=== PATIENT | male | born 1965 | race African-American/Black ===

== ENCOUNTER 2018-03-10 18:23 | Emergency (ER) | payer OTHER ==
[2018-03-10] MEDS ORDERED: MAGNE/ALUM HYDROXD 30 ML UCUP ONE (18:42)
[2018-03-10] MEDS ORDERED: ONDANSETRON 4 MG/2 ML VIAL ONE (18:43)
[2018-03-10] MEDS ORDERED: MORPHINE 4 MG/ML SYR ONE (18:43)
[2018-03-10] MEDS ORDERED: LIDOCAINE VISCOUS 2% SOLN 15 ML UDC ONE (18:43)
[2018-03-10 18:47] LABS: MCH 28.7 pg (27.0-35.0)
[2018-03-10 18:52] LABS: Absolute Lymphocytes (CBC) 2.2 K/uL (0.7-4.9); Absolute Monocytes 0.7 K/uL (0.1-1.3); Absolute Neutrophil 4.1 K/uL (1.8-8.0); Basophils % 0.6 % (0-1.3); Eosinophils % 3.8 % (0-4.4); Hematocrit 42.9 % (39.6-49.0); Lymphocytes % 29.9 % (15.3-44.8); MCV 84.5 fL (80-100); MPV 10.1 fL (7.6-11.3); Monocytes % 9.7 % (3.3-12.3); RBC Red Blood Cell Count 5.07 M/uL (4.33-5.43)
[2018-03-10] MEDS ORDERED: MEPERIDINE HCL 50 MG/ML AMP ONE (19:02)
[2018-03-10 19:21] LABS: Albumin 4.1 g/dL (3.4-5.0); Bilirubin Direct 0.2 mg/dL (0-0.2); Potassium 3.6 mmol/L (3.5-5.1); Protein, Total 7.9 g/dL (6.4-8.2)
[2018-03-10] MEDS ORDERED: NA CHLORIDE 0.9% 1,000 ML ONE (19:43)
[2018-03-10 20:19] LABS: Urine Blood NEGATIVE (NEG); Urine Glucose NEGATIVE (NEG); Urine Protein NEGATIVE (NEG); Urine Specific Gravity 1.015 (1.005-1.030)
[2018-03-10 20:35] LABS: Urine RBC <5 /HPF (NONE SEEN)
[2018-03-10 20:36] LABS: Urine Bacteria NONE SEEN /HPF (NONE SEEN); Urine Culture Reflex Order NOT NEEDED
--- NOTE | 2018-03-10 20:41 | RAD REPORT ---
EXAM DESCRIPTION: CT - Abdomen Pelvis W Contrast - 03/10/2018 8:05 pm CLINICAL HISTORY: Abdominal pain/epigastric pain for 1 hour COMPARISON: none. TECHNIQUE: Computed axial tomography of the abdomen pelvis was obtained. 100 cc Isovue-300 was admin istered intravenously. Oral contrast was not requested which limits evaluation of bowel. All CT scans are performed using dose optimization technique as appropriate and may include automated exposure control or mA/KV adjustment according to patient size. FINDINGS: Mild fatty infiltration liver is present Spleen, pancreas, adrenal and right kidney appear unremarkable. A 7 millimeter left renal cyst is see n. There is no evidence of diverticulitis. An abnormal appendix is not seen. IMPRESSION: No acute abnormality is displayed.
--- NOTE | 2018-03-10 21:04 | EDPHYS ---
Physician Documentation [facility] Name: Angely Jang Age: 52 yrs Sex: Male : 1965 Arrival Date: 03/10/2018 Time: 18:26 Bed 7 Private MD: ED Physician Benji Valle HPI: 03/10 18:38 This 52 yrs old Black Male presents to ER via Ambulatory with complaints of Abdominal rn Pain. 18:39 The patient presents with abdominal pain in the epigastric area. Onset: The rn symptoms/episode began/occurred 1 hour(s) ago. The symptoms do not radiate. Associated signs and symptoms: Pertinent positives: diaphoresis. The symptoms are described as sharp. Modifying factors: The symptoms are alleviated by nothing, the symptoms are aggravated by touching the area. Severity of pain: At its worst the pain was moderate in the emergency department the pain has improved. The patient has not experienced similar symptoms in the past. Reports sudden onset epigastric abd pain 1 hour prior to arrival, slowly improving, became diaphoretic, no radiation, no vomiting/diarrhea. + burping. Denies chest pain.. Historical: - Allergies: 18:28 No Known Allergies; aa5 - PMHx: 18:28 Hypertension; aa5 - PSHx: 18:28 Thyroidectomy (Thyroid cancer); Hernia repair; aa5 - Immunization history:: Adult Immunizations up to date. - Social history:: Smoking status: Patient/guardian denies using tobacco. - Ebola Screening: : Patient denies travel to an Ebola-affected area in the 21 days before illness onset. - Family history:: not pertinent. - Hospitalizations: : No recent hospitalization is reported. ROS: 18:39 Constitutional: Negative for fever, chills, and weight loss, Eyes: Negative for injury, rn pain, redness, and discharge, Neck: Negative for injury, pain, and swelling, Cardiovascular: Negative for chest pain, palpitations, and edema, Respiratory: Negative for shortness of breath, cough, wheezing, and pleuritic chest pain, Abdomen/GI: Negative for nausea, vomiting, diarrhea, and constipation, MS/Extremity: Negative for injury and deformity, Skin: Negative for injury, rash, and discoloration, Neuro: Negative for headache, weakness, numbness, tingling, and seizure. Exam: 18:39 Constitutional: This is a well developed, well nourished patient who is awake, alert, rn appears uncomfortable Head/Face: Normocephalic, atraumatic. Eyes: Pupils equal round and reactive to light, extra-ocular motions intact. Lids and lashes normal. Conjunctiva and sclera are non-icteric and not injected. Cornea within normal limits. Periorbital areas with no swelling, redness, or edema. Chest/axilla: Normal chest wall appearance and motion. Nontender with no deformity. No lesions are appreciated. Cardiovascular: Regular rate and rhythm with a normal S1 and S2. No gallops, murmurs, or rubs. Normal PMI, no JVD. No pulse deficits. Respiratory: Lungs have equal breath sounds bilaterally, clear to auscultation and percussion. No rales, rhonchi or wheezes noted. No increased work of breathing, no retractions or nasal flaring. Abdomen/GI: soft, + mild epigastric tenderness, no rebound, neg joyner MS/ Extremity: Pulses equal, no cyanosis. Neurovascular intact. Full, normal range of motion. Equal circumference. Neuro: Awake and alert, GCS 15, oriented to person, place, time, and situation. Motor strength 5/5 in all extremities. Sensory grossly intact. Vital Signs: 16:28 BP 161 / 95; Pulse 84; Resp 20 S; Temp 98.0(TE); Pulse Ox 98% on R/A; Weight 131.54 kg aa5 (R); Height 6 ft. 0 in. (182.88 cm) (R); Pain 8/10; 18:52 BP 158 / 95; Pulse 79; Resp 19; Pulse Ox 99% on R/A; tw2 19:00 BP 152 / 84; Pulse 69; Resp 17; Pulse Ox 97% on R/A; Pain 9/10; ea 20:00 BP 159 / 68; Pulse 70; Resp 18; Pulse Ox 97% ; ea 21:00 BP 126 / 93; Pulse 60; Resp 18; Temp 97.8; Pulse Ox 99% ; Pain 2/10; ea 16:28 Body Mass Index 39.33 (131.54 kg, 182.88 cm) aa5 MDM: 18:29 Patient medically screened. rn 21:03 Data reviewed: vital signs, nurses notes, lab test result(s), EKG, radiologic studies, pkl CT scan, plain films, ultrasound. 21:04 Patient medically screened. pkl 03/10 18:37 Order name: Amylase, Serum; Complete Time: 19:40 tw2 03/10 18:37 Order name: Basic Metabolic Panel; Complete Time: 19:40 tw2 03/10 18:37 Order name: CBC with Diff; Complete Time: 19:17 tw2 03/10 18:37 Order name: Creatinine for Radiology; Complete Time: 19:17 tw2 03/10 18:37 Order name: Hepatic Function; Complete Time: 19:40 tw2 03/10 18:37 Order name: Lipase; Complete Time: 19:40 tw2 03/10 18:37 Order name: Urine Microscopic Only; Complete Time: 21:00 tw2 03/10 18:38 Order name: US Abdomen Limited rn 03/10 18:38 Order name: CT Abd/Pelvis - W/Contrast; Complete Time: 21:00 rn 03/10 18:39 Order name: Troponin (emerg Dept Use Only); Complete Time: 21:00 rn 03/10 19:59 Order name: Urine Dipstick--Ancillary (enter results); Complete Time: 20:23 2 03/10 18:37 Order name: IV Saline Lock; Complete Time: 18:42 tw2 03/10 18:37 Order name: Labs collected and sent; Complete Time: 18:42 tw2 03/10 18:37 Order name: Urine Dipstick-Ancillary (obtain specimen); Complete Time: 20:55 tw2 03/10 18:37 Order name: EKG - Nurse/Tech; Complete Time: 18:42 tw2 03/10 18:42 Order name: EKG; Complete Time: 18:43 tw2 Administered Medications: 18:42 Drug: GI Cocktail without - (Maalox Suspension 30 ml, Lidocaine Liquid 2 % 15 tw2 ml) Route: PO; 18:51 Follow up: Response: No adverse reaction; No change in condition tw2 18:48 Drug: Zofran 4 mg Route: IVP; Site: right antecubital; tw2 18:57 Follow up: Response: No adverse reaction tw2 18:51 Drug: morphine 4 mg Route: IVP; Site: right antecubital; tw2 18:57 Follow up: Response: No adverse reaction; Pain is unchanged, physician notified tw2 19:00 Drug: Demerol 50 mg Route: IVP; Site: right antecubital; tw2 20:56 Follow up: Response: No adverse reaction; Pain is decreased ea 19:48 Drug: NS 0.9% 1000 ml Route: IV; Rate: 125 ml/hr; Site: right antecubital; ea 21:15 Follow up: Response: No adverse reaction; IV Status: Completed infusion ea 21:07 Drug: ProTONIX 40 mg Route: PO; ea 21:16 Follow up: Response: No adverse reaction; Medication administered at discharge. ea Disposition: 03/10/18 21:04 Discharged to Home. Impression: Epigastric pain. GERD. - Condition is Stable. - Prescriptions for Protonix 40 mg Oral Tablet, Delayed Release (E.C.) - take 1 tablet by ORAL route once daily; 15 tablet. - Medication Reconciliation Form, Thank You Letter, Antibiotic Education, Prescription Opioid Use form. - Follow up: Private Physician; When: 2 - 3 days; Reason: Re-evaluation by your physician. - Problem is new. - Symptoms have improved. Signatures: Dispatcher [employer] EDBenji Mills MD MD pkl Abundio Ansari MD MD rn Kristy Valladares, RN RN aa5 Dai Davenport RN RN tw2 Lul Najera RN RN ae1 Nena Coulter RN RN Corrections: (The following items were deleted from the chart) 21:18 21:04 03/10/2018 21:04 Discharged to Home. Impression: Epigastric pain. GERD. Condition ea is Stable. Forms are Medication Reconciliation Form, Thank You Letter, Antibiotic Education, Prescription Opioid Use. Follow up: Private Physician; When: 2 - 3 days; Reason: Re-evaluation by your physician. Problem is new. Symptoms have improved. pkl
--- NOTE | 2018-03-10 21:04 | ER ---
Nurse's Notes [facility] Name: Angely Jang Age: 52 yrs Sex: Male : 1965 Arrival Date: 03/10/2018 Time: 18:26 Bed 7 Private MD: Diagnosis: Epigastric pain. GERD Presentation: 03/10 18:27 Presenting complaint: Patient states: sudden onset of epigastric pain x 1 hr ago. Pt aa5 denies N/V/D. Pt states "I got sweaty". Pt appears uncomfortable and restless in triage. 18:27 Transition of care: patient was not received from another setting of care. Onset of aa5 symptoms was March 10, 2018. Risk Assessment: Do you want to hurt yourself or someone else? Patient reports no desire to harm self or others. Initial Sepsis Screen: Does the patient meet any 2 criteria? No. Patient's initial sepsis screen is negative. Does the patient have a suspected source of infection? No. Patient's initial sepsis screen is negative. Care prior to arrival: None. 18:27 Method Of Arrival: Ambulatory aa5 18:27 Acuity: PAWEL 2 aa5 Historical: - Allergies: 18:28 No Known Allergies; aa5 - PMHx: 18:28 Hypertension; aa5 - PSHx: 18:28 Thyroidectomy (Thyroid cancer); Hernia repair; aa5 - Immunization history:: Adult Immunizations up to date. - Social history:: Smoking status: Patient/guardian denies using tobacco. - Ebola Screening: : Patient denies travel to an Ebola-affected area in the 21 days before illness onset. - Family history:: not pertinent. - Hospitalizations: : No recent hospitalization is reported. Screenin:30 Abuse screen: Denies threats or abuse. Nutritional screening: No deficits noted. tw2 Tuberculosis screening: No symptoms or risk factors identified. Fall Risk None identified. Assessment: 18:43 General: Appears uncomfortable, obese, well groomed, Behavior is cooperative. Pain: tw2 Complains of pain in epigastric area. Neuro: Level of Consciousness is awake, alert, obeys commands, Oriented to person, place, time, situation. Cardiovascular: Denies chest pain, shortness of breath, Heart tones S1 S2 Patient's skin is warm and dry. Respiratory: Airway is patent Respiratory effort is even, unlabored, Respiratory pattern is regular, symmetrical, Breath sounds are clear bilaterally. GI: Abdomen is round non-distended, Bowel sounds present X 4 quads. Abd is soft X 4 quads. : No signs and/or symptoms were reported regarding the genitourinary system. EENT: No signs and/or symptoms were reported regarding the EENT system. Derm: Skin is intact, is healthy with good turgor, Skin is dry, Skin temperature is warm. Musculoskeletal: Range of motion: intact in all extremities. 19:07 General: Appears uncomfortable, Behavior is cooperative, restless. Pain: Complains of ea pain in epigastric area Pain does not radiate. Quality of pain is described as aching, Is continuous. Neuro: Level of Consciousness is awake, alert, obeys commands, Oriented to person, place, time, situation. Cardiovascular: Heart tones S1 S2 present Patient's skin is warm and dry. Respiratory: Airway is patent Respiratory effort is even, unlabored, Respiratory pattern is regular, symmetrical, Breath sounds are clear bilaterally. GI: Abdomen is round non-distended, Bowel sounds present X 4 quads. Abd is soft X 4 quads Abd is non tender X 4 quads. : No signs and/or symptoms were reported regarding the genitourinary system. EENT: No signs and/or symptoms were reported regarding the EENT system. Derm: Skin is intact, Skin is dry, Skin temperature is warm. Musculoskeletal: Range of motion: intact in all extremities. 20:50 Reassessment: Patient and/or family updated on plan of care and expected duration. Pain ea level reassessed. Patient is alert, oriented x 3, equal unlabored respirations, skin warm/dry/pink. 21:13 Reassessment: Patient and/or family updated on plan of care and expected duration. Pain ea level reassessed. Patient is alert, oriented x 3, equal unlabored respirations, skin warm/dry/pink. Discharge instructions given to patient, verbalized the understanding of instruction. Patient states feeling better. Patient states symptoms have improved. Vital Signs: 16:28 BP 161 / 95; Pulse 84; Resp 20 S; Temp 98.0(TE); Pulse Ox 98% on R/A; Weight 131.54 kg aa5 (R); Height 6 ft. 0 in. (182.88 cm) (R); Pain 8/10; 18:52 BP 158 / 95; Pulse 79; Resp 19; Pulse Ox 99% on R/A; tw2 19:00 BP 152 / 84; Pulse 69; Resp 17; Pulse Ox 97% on R/A; Pain 9/10; ea 20:00 BP 159 / 68; Pulse 70; Resp 18; Pulse Ox 97% ; ea 21:00 BP 126 / 93; Pulse 60; Resp 18; Temp 97.8; Pulse Ox 99% ; Pain 2/10; ea 16:28 Body Mass Index 39.33 (131.54 kg, 182.88 cm) aa5 ED Course: 18:26 Patient arrived in ED. mr 18:28 Arm band placed on Patient placed in an exam room, on a stretcher. aa5 18:29 Abundio Ansari MD is Attending Physician. rn 18:30 Dai Davenport RN is Primary Nurse. tw2 18:30 Bed in low position. Call light in reach. Adult w/ patient. security systems sales representative on. Pulse tw2 ox on. NIBP on. 18:32 No provider procedures requiring assistance completed. Inserted saline lock: 20 gauge tw2 in right antecubital area, using aseptic technique. Blood collected. 18:33 Triage completed. aa5 18:40 EKG done, by ED staff, reviewed by Abundio Ansari MD. jb1 18:47 Radiology exam delayed due to lab results not completed at this time. (BUN/Creatinine). vr 18:58 Report given to FELIX Barrett. tw2 19:10 Primary Nurse role handed off by Dai Davenport RN rg2 19:14 Attending Physician role handed off by Abundio Ansari MD pkl 19:14 Benji Valle MD is Attending Physician. pkl 19:22 Ultrasound completed. Patient tolerated well. Notified ED Physician juan daniel. sg3 20:05 CT Abd/Pelvis - W/Contrast In Process Unspecified. EDMS 20:44 Nena Coulter RN is Primary Nurse. ea 20:49 X-ray completed. Portable x-ray completed in exam room. Patient tolerated procedure tm4 well. 21:10 IV discontinued, intact, bleeding controlled, No redness/swelling at site. Pressure ea dressing applied. Administered Medications: 18:42 Drug: GI Cocktail without - (Maalox Suspension 30 ml, Lidocaine Liquid 2 % 15 tw2 ml) Route: PO; 18:51 Follow up: Response: No adverse reaction; No change in condition tw2 18:48 Drug: Zofran 4 mg Route: IVP; Site: right antecubital; tw2 18:57 Follow up: Response: No adverse reaction tw2 18:51 Drug: morphine 4 mg Route: IVP; Site: right antecubital; tw2 18:57 Follow up: Response: No adverse reaction; Pain is unchanged, physician notified tw2 19:00 Drug: Demerol 50 mg Route: IVP; Site: right antecubital; tw2 20:56 Follow up: Response: No adverse reaction; Pain is decreased ea 19:48 Drug: NS 0.9% 1000 ml Route: IV; Rate: 125 ml/hr; Site: right antecubital; ea 21:15 Follow up: Response: No adverse reaction; IV Status: Completed infusion ea 21:07 Drug: ProTONIX 40 mg Route: PO; ea 21:16 Follow up: Response: No adverse reaction; Medication administered at discharge. ea Outcome: 21:04 Discharge ordered by . betsy 21:14 Discharged to home ambulatory, with significant other. ea 21:14 Condition: improved 21:14 Discharge instructions given to patient, Instructed on discharge instructions, follow up and referral plans. medication usage, Demonstrated understanding of instructions, follow-up care, medications, Prescriptions given X 1. 21:18 Patient left the ED. ea Signatures: Dispatcher [employer] Zack Matamoros jb1 Brigette Camacho rg2 Benji Valle MD MD pkl Rivera, Maria Lacey Colon tm4 Abundio Ansari MD MD rn Calderon, Audri RN RN aa5 Sarah Gonzales Tara, RN RN tw2 Nena Coulter, Marci Zaldivar RN, ea sg3 Corrections: (The following items were deleted from the chart) 19:38 19:38 In radiology for Abdomen Limited+[email or web address]. EDMS sg3
[2018-03-10] MEDS ORDERED: PANTOPRAZOLE 40MG TABLET PO ONE (21:08)
--- NOTE | 2018-03-10 22:53 | RAD REPORT ---
EXAM DESCRIPTION: US - Abdomen Exam Limited - 03/10/2018 7:38 pm CLINICAL HISTORY: Abdominal pain. COMPARISON: None. FINDINGS: The gallbladder wall is not thickened. A gallstone is not seen. The biliary tree is normal caliber. IMPRESSION: Unremarkable gallbladder ultrasound.
--- NOTE | 2018-03-12 07:44 | EKG ---
Test Date: 2018-03-10 Test Time: 18:31:01 Stock Car Driver: MB MEASUREMENT RESULTS: Intervals: Rate: 0 CO: QRSD: 0 QT: 0 QTc: 0 [place]: P: CO: QRS: 0 T: 0 INTERPRETIVE STATEMENTS: No QRS complexes found, no ECG analysis possible Compared to ECG 02/03/2014 08:24:50 No comparison is possible Electronically Signed On 03-12-18 07:44:16 CDT by Boyd Ortega
--- NOTE | 2018-03-12 07:44 | EKG ---
Test Date: 2018-03-10 Test Time: 18:33:37 Anaesthesiologist: MB MEASUREMENT RESULTS: Intervals: Rate: 78 AK: 172 QRSD: 100 QT: 378 QTc: 430 [place]: P: 54 AK: 172 QRS: 16 T: 38 INTERPRETIVE STATEMENTS: Normal sinus rhythm Normal ECG Compared to ECG 03/10/2018 18:31:01 No significant changes Electronically Signed On 03-12-18 07:43:58 CDT by Boyd Ortega
== END 2018-03-10 21:18 | disposition home or self-care (01) ==
LOC: ER 18:23
DX: K21.9 Gastro-esophageal reflux disease without esophagitis (principal); I10 Essential (primary) hypertension; Z85.850 Personal history of malignant neoplasm of thyroid
CPT/HCPCS: 36415; 74177; 76705; 80048; 80076; 81003; 81015; 82150; 83690; 84484; 85025; 93005; 96361; 96374; 96375; 99285; J2175; J2405; J7030; Q9967